=== PATIENT | male | born 1945 | race African-American/Black ===

== ENCOUNTER 2023-07-26 14:44 | Emergency (ER) | payer OTHER, SELFPAY ==
[2023-07-26 14:50] VITALS: BP 127/76
[2023-07-26 15:16] LABS: % Basophils 1.1 % (0-2); % Eosinophils 1.1 % (0-6); % Immature Granulocytes 0.3 % (0-0.5); % Lymphocytes 33.2 % (20.5-51.1); % Monocytes 9.5 % (1.7-9.3); % Neutrophils 54.8 % (42.2-75.2); Absolute Lymphocytes 1.2 10^3/uL (1.2-3.4); Absolute Monocytes 0.3 10^3/uL (0.1-0.6); Absolute Neutrophils 1.9 10^3/uL (1.4-6.5); Hematocrit 42.2 % (39.0-52.0); Hemoglobin 13.6 g/dL (13.0-18.0); Mean Corp Hgb Conc. 32.2 g/dL (33.0-37.0); Mean Corpuscular Hgb 30.3 pg (27.0-31.0); Mean Platelet Volume 9.8 fL (7.4-10.4); Nucleated Red Blood Cells % 0 % (-); Platelet Count 141 10^3/uL (130-400); Red Blood Cell Count 4.49 10^6/uL (4.70-6.10); Red Cell Dist. Width 14.1 % (11.5-14.5); White Blood Cell Count 3.5 10^3/uL (4.8-10.8)
[2023-07-26 15:27] LABS: ALT (SGPT) 20 U/L (0-50); AST (SGOT) 26 U/L (17-59); Albumin 3.6 g/dl (3.5-5.0); Alkaline Phosphatase 68 U/L (38-126); Blood Urea Nitrogen 31 mg/dl (9-20); Calcium 9.1 mg/dl (8.4-10.2); Carbon Dioxide 20 mmol/L (22-30); Chloride 117 mmol/L (98-107); Glucose 90 mg/dl (70-99); Potassium 4.5 mmol/L (3.5-5.1); Sodium 140 mmol/L (135-145); Total Bilirubin 0.8 mg/dl (0.2-1.3); Total Protein 6.8 g/dl (6.3-8.2); eGFR > 60.00
[2023-07-26 15:38] LABS: Troponin I < 0.012 ng/ml
--- NOTE | 2023-07-26 18:37 | ED.GENMED ---
History of Present Illness
General
Chief Complaint: Chest Pain
Source: patient
Exam Limitations: none
Time Seen by Provider: 07/26/23 17:34
Nursing documentation reviewed up to this point in time: agreed with
Travel History
Have you had any contact with someone who has COVID-19?: No
Do you have any symptoms of coronavirus? Fever > 100 degrees, chills, cough, shortness of breath, sore throat, loss of taste or smell, muscle aches, or headache?: No
History of Present Illness
History of Present Illness:
78-year-old male with past medical history of A-fib on Eliquis presents to the ER for evaluation of left-sided chest pain that has been what he describes as constant for the past 3 days. He reports when he moves his arm pain is intensified and he
does feel slight pain in the left scapula when he moves his arm. He denies any actual injury. He denies any associated shortness of breath. He denies any recent injury cough. He has not take anything for pain. Denies any rash.
He is a pt of Dr wynne.
Past History
Past History
ED Past Medical History: Arrthythmia, CAD, HTN and Hypercholesterolemia
ED Past Surgical History: Cardiac
Social History
Tobacco: Non-smoker
Alcohol: None
Drug: None
Personal:
Living: with family
Employment: Retired
Review of Systems
Review of Systems
Allergies reviewed?: Yes
All Other Systems: ROS reviewed and negative except as documented in HPI and ROS
Constitutional: Reports no symptoms; Denies fever, fatigue or chills
EENT: Reports no symptoms
Respiratory: Reports no symptoms; Denies trouble breathing
Cardiac: Reports chest pain; Denies diaphoresis, palpitations or syncope
ABD/GI: Reports no symptoms
: Reports no symptoms
Musculoskeletal: Reports no symptoms
Skin: Reports no symptoms
Neurological: Reports no symptoms
Hematologic/Lymphatic: Reports no symptoms
Psychiatric: Reports no symptoms
Phy Exam
General Physical Exam
General Presentation: no apparent distress
General age: appears stated age
General Skin: warm and dry
General Habitus: normal
General Mental: alert
General Hydration: appears well hydrated
Cardiovascular Exam
Cardiovascular Exam: regular rate/rhythm, no murmur and normal peripheral pulses
Pulmonary Exam
Pulmonary Exam: lungs clear and no respiratory distress
Neurological Exam
Neurological Exam: alert and oriented x3
Álvaro Coma Scale
Eye Opening: Spontaneous
Verbal Response: Oriented
Motor Response: Obeys Commands
GCS Total Score: 15
Musculoskeletal Exam
Musculoskeletal Exam: full ROM
Skin Exam
Skin Exam: normal color and warm/dry
Psychiatric Exam
Psychiatric Exam: normal mood/affect
Scores
Heart Score for Chest Pain Patients
STEMI patient?: Not applicable
Course
Orders/Labs/Results
Orders:
Orders
07/26/23 14:46
ECG [Electrocardiogram (*1)] Urgent
Reason for Study: Chest Pain
EKG- Treatment ONCE
07/26/23 15:00
Complete Blood Count/With Diff Urgent
Comprehensive Metabolic Panel Urgent
Troponin I Urgent
07/26/23 18:37
Chest [CR Chest - 2 Views ] Urgent
Comment:
Reason For Exam: cp
07/26/23 20:14
Acetaminophen [Tylenol] 1,000 mg PO NOW STA
Abnormal Lab Results
07/26/23
15:00
WBC 3.5 L 10^3/uL
(4.8-10.8)
RBC 4.49 L 10^6/uL
(4.70-6.10)
MCHC 32.2 L g/dL
(33.0-37.0)
Monocytes % 9.5 H %
(1.7-9.3)
Chloride 117 H mmol/L
(98-107)
Carbon Dioxide 20 L mmol/L
(22-30)
BUN 31 H mg/dl
(9-20)
07/26/23 15:00
07/26/23 15:00
Vital Signs
Initial and Last Documented VS:
Initial Vital Signs
Temp Pulse Resp BP Pulse Ox
97.7 F 67 16 127/76 98
07/26/23 14:50 07/26/23 14:50 07/26/23 14:50 07/26/23 14:50 07/26/23 14:50
Last Documented Vital Signs
Temp Pulse Resp BP Pulse Ox
97.7 F 57 22 127/76 100
07/26/23 14:50 07/26/23 20:45 07/26/23 20:45 07/26/23 14:50 07/26/23 19:00
MDM/Problems Addressed
Differential Diagnosis Includes:
Not limited to musculoskeletal chest pain, less likely unstable angina CAD
MDM/Problems Addressed:
Patient has a history of A-fib cardiomyopathy hypertension hyperlipidemia no actual CAD. He presented with constant chest pain to the left side of his chest worse with moving his left arm. He reports with movement he does feel pain in his left
scapular area. He denies any shortness of breath. He is on Eliquis. Has not missed a dose. He is in no acute distress lungs are clear afebrile no recent cough or injury. X-ray negative. Patient was given Tylenol feeling better. Presently no
pain at rest only with movement of left arm likely muscular, no concerning symptoms however will place on chest pain hotline.
Chronic conditions affecting care:
A-fib on Eliquis has not missed a dose cardiomyopathy hypertension high blood pressure
*Radiology
Radiology exam reviewed: radiology read reviewed
*Pulse Oximetry
Patient hypoxic: no
*EKG
Interpreted by ED Provider?: Yes
Interpretation: normal
Heart Rate: 63
Rate: normal
Rhythm: sinus
Ischemia: no ischemia
*Critical Care Note
Total Time (30-74mins, 75-104mins- exclusive of procedures): Not Applicable
ED Attending Note
-
Portions of this chart may have been created with voice recognition software.� Occasional wrong word or��sound alike� substitutions may have occurred due to the inherent limitations of voice recognition software.
Discharge Plan
Departure
Patient Disposition: Home (Routine Discharge)
Date of Disposition: 07/26/23
Time of Disposition: 22:07
Patient with high blood pressure during this ER visit?: No
Condition: Fair
Covid-19: Not Applicable
Discharge Problem:
Chest pain
Instructions: Chest Pain CBC Follow Up
Prescriptions:
No Action
pravastatin 40 MG tablet
80 mg PO HS
minocycline 50 MG capsule
50 mg PO QPM
Patient Comments:
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
carvedilol 12.5 MG tablet
25 mg PO BID
diltiazem HCl 120 MG capsule,extended release 24hr
120 mg PO HS
latanoprost [Xelpros] 2.5 ML drops, emulsion
1 drp BOTH EYES HS
apixaban [Eliquis] 5 MG tablet
5 mg PO BID
docusate sodium [Colace] 100 MG capsule
100 mg PO BID Qty: 60 0RF
Rx Instructions:
get over the counter
tramadol 50 MG tablet
50 mg PO Q8HPRN PRN (Reason: pain) Qty: 30 0RF
nitrofurantoin monohyd/m-cryst 100 MG capsule
100 mg PO HS Qty: 30 0RF
Referrals:
Jacques Wynne MD [Active] -
Ora Aj MD [Family Provider] -
Activity Restrictions/Additional Instructions:
Follow-up as discussed with cardiology. You were placed on the chest pain hotline which means cardiology office should give you a call in the next several days if you do not hear from the office please give them a call. Return if any worsening of
symptoms. You may take Tylenol ever 6 hours as needed peer return if any worsening of symptoms.
Please increase water intake on your labs you are mildly dehydrated
Interventions
Interventions:
*Risk Screen - Suicide Last Done: 07/26/23 17:17
*General Assessment Last Done: 07/26/23 17:17
*Neglect/Abuse Screening Last Done: 07/26/23 17:17
ED- Fall Risk Assessment Last Done: 07/26/23 17:17
*ED COVID-19 Vaccine History Last Done: 07/26/23 14:50
ED- Cardiac Assessment Last Done: 07/26/23 17:17
[2023-07-26 18:49] VITALS: BMI 25.5
[2023-07-26] MEDS: TYLENOL 1000 MG PO (20:28)
== END 2023-07-26 22:20 | disposition home or self-care (01) ==
LOC: EMR 14:44
PROVIDERS: Emergency Medicine; EMERGENCY PHYSICIAN Emergency Medicine; FAMILY PHYSICIAN Student in an Organized Health Care Education/Training Program
DX: R07.89 Other chest pain (principal); M79.602 Pain in left arm; I48.91 Unspecified atrial fibrillation; I42.9 Cardiomyopathy, unspecified; I10 Essential (primary) hypertension; I25.10 Atherosclerotic heart disease of native coronary artery without angina pectoris; E78.00 Pure hypercholesterolemia, unspecified; Z79.01 Long term (current) use of anticoagulants
CPT/HCPCS: 99283; 71046; 80053; 84484; 85025; 93005

== ENCOUNTER → 2023-11-23 12:32 | Outpatient (REF) | payer OTHER, SELFPAY | LOC: RAD 12:32 | PROVIDERS: ATTENDING PHYSICIAN Specialist; FAMILY PHYSICIAN Student in an Organized Health Care Education/Training Program | DX: C61 Malignant neoplasm of prostate (principal) | CPT/HCPCS: 74176 ==

== ENCOUNTER → 2024-10-02 14:36 | Outpatient (REF) | payer OTHER, SELFPAY | LOC: RCS 14:36 | PROVIDERS: ATTENDING PHYSICIAN Internal Medicine; FAMILY PHYSICIAN Student in an Organized Health Care Education/Training Program | DX: I50.22 Chronic systolic (congestive) heart failure (principal); I48.0 Paroxysmal atrial fibrillation; I35.1 Nonrheumatic aortic (valve) insufficiency; I10 Essential (primary) hypertension | CPT/HCPCS: 93306 ==